=== PATIENT | male | born 1990 | race Caucasian/White ===

== ENCOUNTER 2017-06-12 10:43 | Inpatient (IN) | payer OTHER ==
[2017-06-12 10:58] VITALS: BMI 31.1
--- NOTE | 2017-06-12 11:21 | HP ---
COWS - Scale Resting Pulse: 1= ID [id number] Sweatin=Flushed/Facial Moisture Restless Observation: 3= Extraneous Movement Pupil Size: 2= Moderately Dilated Bone or Joint Aches: 2= Severe Diffuse Aches Runny Nose/ Eye Tearin= Runny Nose/Eyes GI Upset > 30mins: 3= Vomiting/Diarrhea Tremor Observation: 2= Slight Tremor Visible Yawning Observation: 2= >3x During Session Anxiety or Irritability: 2=Irritable/Anxious Goose Flesh Skin: 0=Smooth Skin COWS Score: 21 Admission ROS BHS - HPI Chief Complaint: i need help to stop using oxycodone and xanax Allergies/Adverse Reactions: Allergies Allergy/AdvReac Type Severity Reaction Status Date / Time No Known Allergies Allergy Verified 06/12/17 11:05 History of Present Illness: this 27 years old male with oxycodone and xanax dependence,seeking detox,last treatment [facility] from 12/14/15 to 12/18/15 ocd anxiety nicotine dependence no significant period of sobriety Exam Limitations: No Limitations - Ebola screening Have you traveled outside of the country in the last 21 days: No Have you had contact with anyone from an Ebola affected area: No Have you been sick,other than usual withdrawal symptoms: No Do you have a fever: No - Review of Systems Constitutional: Chills, Loss of Appetite, Malaise, Night Sweats, Changes in sleep EENT: reports: Tearing, Nose Congestion Respiratory: reports: No Symptoms reported Cardiac: reports: No Symptoms Reported GI: reports: Diarrhea, Nausea, Vomiting, Abdominal cramping : reports: No Symptoms Reported Musculoskeletal: reports: Back Pain, Joint Pain, Muscle Pain, Joint Stiffness Integumentary: reports: Dryness Endocrine: reports: No Symptoms Reported Hematology: reports: No Symptoms Reported Psychiatric: reports: Anxious (ocd insomnia) Patient History - Patient Medical History Hx Anemia: No Hx Asthma: No Hx Chronic Obstructive Pulmonary Disease (COPD): No Hx Cancer: No Hx Cardiac Disorders: No Hx Congestive Heart Failure: No Hx Hypertension: No Hx Hypercholesterolemia: No Hx Pacemaker: No HX Cerebrovascular Accident: No Hx Seizures: No Hx Dementia: No Hx Diabetes: No Hx Gastrointestinal Disorders: No Hx Liver Disease: No Hx Genitourinary Disorders: No Hx Sexually Transmitted Disorders: No Hx Renal Disease (ESRD): No Hx Thyroid Disease: No Hx Human Immunodeficiency Virus (HIV): No (06/25 NEGATIVE) Hx Hepatitis C: No Hx Depression: No Hx Suicide Attempt: No Hx Bipolar Disorder: No Hx Schizophrenia: No Other Medical History: ocd,insomnia,no suicidal,no homicidal - Patient Surgical History Past Surgical History: Yes Hx Orthopedic Surgery: Yes (fracture of right ankle) Other Surgical History: repair of right ankle 2013 Anesthesia Reaction: No - PPD History Previous Implant?: Yes Documented Results: Negative w/o proof Implanted On Prior [facility] Admission?: No Date: 12/16/15 Results: 0 MM PPD to be Administered?: Yes - Smoking Cessation Smoking history: Current every day smoker Have you smoked in the past 12 months: Yes Aproximately how many cigarettes per day: 20 Cigars Per Day: 0 Hx Chewing Tobacco Use: No Initiated information on smoking cessation: Yes 'Breaking Loose' booklet given: 06/12/17 - Substance & Tx. History Hx Alcohol Use: No Hx Substance Use: Yes Substance Use Type: Opiates, Tranquilizers Hx Substance Use Treatment: Yes ([facility] 12/14/15 to 12/18/15) - Substances Abused Alprazolam (Xanax) Route: Oral Frequency: Daily Amount used: 6MG Age of first use: 16 Date of Last Use: 06/11/17 OXYCODONE Route: Oral Frequency: Daily Amount used: 16 30MG PILLS Age of first use: 19 Date of Last Use: 06/11/17 Family Disease History - Family Disease History Family History: Denies Admission Physical Exam S - Vital Signs Vital Signs: Vital Signs - 24 hr 06/12/17 10:54 Temperature 97.4 F L Pulse Rate 90 Respiratory 18 Rate Blood Pressure 130/80 - Physical General Appearance: Yes: Moderate Distress, Tremorous, Irritable, Sweating, Anxious HEENTM: Yes: Normal ENT Inspection, NIC, Pharynx Normal Respiratory: Yes: Within Normal Limits, Lungs Clear, Normal Breath Sounds, No Respiratory Distress Neck: Yes: Within Normal Limits, Supple, Trachea in good position Breast: Yes: Within Normal Limits Cardiology: Yes: Within Normal Limits, Regular Rhythm, Regular Rate, S1, S2 Abdominal: Yes: Within Normal Limits, Non Tender, Flat, Soft Genitourinary: Yes: Within Normal Limits Back: Yes: Within Normal Limits, Normal Inspection, Muscle Spasm Musculoskeletal: Yes: Back pain, Joint Stiffness, Muscle Pain Extremities: Yes: Tremors, Other (s/p surgery of right akle fracture) Neurological: Yes: caul dresser II-XII NML intact, Fully Oriented, Alert, Motor Strength 5/5 Integumentary: Yes: Dry Lymphatic: Yes: Within Normal Limits - Diagnostic (1) Benzodiazepine dependence Current Visit: No Status: Acute (2) Insomnia Current Visit: No Status: Acute Qualifiers: Insomnia type: drug-induced Qualified Code(s): F19.982 - Other psychoactive substance use, unspecified with psychoactive substance-induced sleep disorder (3) Low back pain Current Visit: No Status: Acute (4) Nicotine dependence Current Visit: No Status: Acute Qualifiers: Nicotine product type: cigarettes Substance use status: uncomplicated Qualified Code(s): F17.210 - Nicotine dependence, cigarettes, uncomplicated (5) OCD (obsessive compulsive disorder) Current Visit: No Status: Acute (6) Opioid dependence with withdrawal Current Visit: No Status: Acute Cleared for Admission [facility] - Detox or Rehab [facility] Level of Care: Medically Managed Detox Regimen/Protocol: Methadone [facility] Breath Alcohol Content Breath Alcohol Content: 0 Urine Drug Screen - Results Drug Screen Negative: No Urine Drug Screen Results: MTD-Methadone, OXY-Oxycodone
[2017-06-12] MEDS ORDERED: MAGNESIUM HYDROX 2400MG/30ML ORAL SUSPENSION 30 ML CUP PO PRN (11:30)
[2017-06-12] MEDS ORDERED: guaiFENesin/D-METHORPHAN HB 10 ML UNIT-DOSE CUPS PO PRN (11:30)
[2017-06-12] MEDS ORDERED: IBUPROFEN 400 MG TABLET (FP) PO PRN (11:30)
[2017-06-12] MEDS ORDERED: MAG HYDROX/AL HYDROX/SIMETH 30 ML UNIT-DOSE CUP PO PRN (11:30)
[2017-06-12] MEDS ORDERED: ACETAMINOPHEN 325 MG TABLET (FP) PO PRN (11:30)
[2017-06-12] MEDS ORDERED: MAGNESIUM CITRATE 300 ML BOTTLE PO PRN (11:30)
[2017-06-12] MEDS ORDERED: MENTHOL/PHENOL 1 EACH UD MM PRN (11:30)
[2017-06-12] MEDS ORDERED: LOPERAMIDE HCL 2 MG CAPSULE PO PRN (11:30)
[2017-06-12] MEDS ORDERED: P-EPHED 60MG/TRIPROLIDI 2.5MG TABLET PO PRN (11:30)
[2017-06-12] MEDS ORDERED: METHADONE HCL 10 MG TABLET (FOR DETOX USE ONLY) PO ONE ×2 (11:42→23:00)
[2017-06-12] MEDS: diazePAM 5 MG TABLET PO PRN ×3 (12:28→22:02)
--- NOTE | 2017-06-12 13:27 | EKG ---
Test Reason : Blood Pressure : / mmHG Vent. Rate : 083 BPM Atrial Rate : 083 BPM P-R Int : 150 ms QRS Dur : 094 ms QT Int : 378 ms P-R-T Axes : 069 036 050 degrees QTc Int : 444 ms NORMAL SINUS RHYTHM NORMAL ECG NO PREVIOUS ECGS AVAILABLE Confirmed by CLEMENCIA ROBBINS MD ([id number]) on 06/12/2017 1:27:05 PM Referred By: Confirmed By:CLEMENCIA ROBBINS MD
--- NOTE | 2017-06-12 16:30 | CONSULT ---
[facility] Psychiatric Consult - Data Date of interview: 06/12/17 Admission source: [facility] Identifying data: Readmission to [facility] for this 27 y/o male seeking detox treatment on for xanax and opiate dependence.Patient is single without children,domiciled and currently employed. Substance Abuse History: Confirmed by patient in this interview.See current [facility] report for details : Smoking history: Current every day smoker. Have you smoked in the past 12 months: Yes. Aproximately how many cigarettes per day: 20. Cigars Per Day: 0. Hx Chewing Tobacco Use: No. Initiated information on smoking cessation: Yes. 'Breaking Loose' booklet given: 06/12/17. - Substance & Tx. History. Hx Alcohol Use: No. Hx Substance Use: Yes. Substance Use Type : Opiates, Tranquilizers. Hx Substance Use Treatment: Yes ([facility] 12/14/15 to 03/25). - Substances Abused. Alprazolam (Xanax). Route: Oral. Frequency: Daily. Amount used: 6MG. Age of first use: 16. Date of Last Use: 06/11/17. * * OXYCODONE. Route: Oral. Frequency: Daily. Amount used: 16 30MG PILLS. Age of first use: 19. Date of Last Use: 06/11/17 Medical History: Patient endorses good general health.Noted history of orthosurgery for fracture of right ankle (2012). Psychiatric History: Patient denies history of psychiatric hospitalizations.No affiliation with psychiatric OPD care providers.Mr Benítez denies history of suicide attempts. Physical/Sexual Abuse/Trauma History: No reported history of abuse. Additional Comment: Urine Drug Screen Results: MTD-Methadone, OXY- Oxycodone.Noted. Mental Status Exam - Mental Status Exam Alert and Oriented to: Time, Place, Person Cognitive Function: Good Patient Appearance: Well Groomed Mood: Hopeful, Euthymic Affect: Appropriate, Normal Range Patient Behavior: Appropriate, Cooperative Speech Pattern: Clear, Appropriate Voice Loudness: Normal Thought Process: Intact, Goal Oriented Thought Disorder: Not Present Hallucinations: Denies Suicidal Ideation: Denies Homicidal Ideation: Denies Insight/Judgement: Poor Sleep: Poorly, Difficulty falling asleep Muscle strength/Tone: Normal Gait/Station: Normal Psychiatric Findings - Problem List ([place] 1, 2,3) (1) Opioid dependence with withdrawal Current Visit: Yes Status: Acute (2) Nicotine dependence Current Visit: Yes Status: Acute Qualifiers: Nicotine product type: cigarettes Substance use status: uncomplicated Qualified Code(s): F17.210 - Nicotine dependence, cigarettes, uncomplicated (3) Drug-induced mood disorder Current Visit: Yes Status: Suspected (4) Insomnia Current Visit: Yes Status: Acute Qualifiers: Insomnia type: drug-induced Qualified Code(s): F19.982 - Other psychoactive substance use, unspecified with psychoactive substance-induced sleep disorder - Initial Treatment Plan Initial Treatment Plan: Psychoeducation.Sleep hygiene discussed.Detoxification in progress.Ambien 10 mg po hs prn.Side effects/benefits discussed with patient.Mr Benítez agrees with this careplan.Observation.
[2017-06-12] MEDS: NICOTINE POLACRILEX 2 MG GUM BUC PRN (17:34)
[2017-06-12 18:38] LABS: HEMATOCRIT 42.3 % (35.4-49); HEMOGLOBIN 14.3 GM/dL (11.7-16.9); MCH 28.9 pg (25.7-33.7); MCHC 33.8 g/dl (32.0-35.9); MEAN CELL VOLUME 85.5 fl (80-96); MEAN PLT VOLUME 9.3 fl (7.5-11.1); PLATELET COUNT 236 K/MM3 (134-434); RBC 4.95 M/mm3 (4.00-5.60); WHITE BLOOD COUNT 7.2 K/mm3 (4.0-10.0)
[2017-06-12 18:44] LABS: URINE APPEARANCE CLEAR; URINE BILIRUBIN NEGATIVE (NEGATIVE); URINE BLOOD NEGATIVE (NEGATIVE); URINE COLOR LTYELLOW; URINE GLUCOSE (UA) NEGATIVE (NEGATIVE); URINE KETONE NEGATIVE (NEGATIVE); URINE LEUK ESTERASE NEGATIVE (NEGATIVE); URINE NITRITE NEGATIVE (NEGATIVE); URINE PROTEIN NEGATIVE (NEGATIVE); URINE UROBILINOGEN NEGATIVE mg/dL (0.2-1.0)
[2017-06-12 18:51] LABS: ALBUMIN 4.8 g/dl (3.4-5.0); ALK PHOS 83 U/L (45-117); ANION GAP 9 (8-16); BILIRUBIN,TOTAL 0.6 mg/dL (0.2-1.0); BLOOD UREA NITROGEN 10 mg/dL (7-18); CALCIUM 9.7 mg/dL (8.5-10.1); CHLORIDE 103 mmol/L (98-107); CO2 27 mmol/L (21-32); CREATININE 1.1 mg/dL (0.7-1.3); GLUCOSE,RANDOM 108 mg/dL (74-106); POTASSIUM 3.9 mmol/L (3.5-5.1); SGOT/AST 16 U/L (15-37); SGPT/ALT 22 U/L (12-78); SODIUM 139 mmol/L (136-145); TOT PROT 7.9 g/dl (6.4-8.2)
[2017-06-12] MEDS: ZOLPIDEM TARTRATE 10 MG TABLET (PARK CARE ONLY) PO PRN (22:02)
[2017-06-12] MEDS: THIAMINE HCL 100 MG TABLET (FP) PO SCH (22:02)
[2017-06-13] MEDS: diazePAM 5 MG TABLET PO PRN ×3 (05:45→21:35)
[2017-06-13] MEDS ORDERED: METHADONE HCL 10 MG TABLET (FOR DETOX USE ONLY) PO ONE (10:00)
[2017-06-13] MEDS: PRENATAL VITAMINS W/ FOLIC ACID TABLET (FP) PO SCH (10:16)
--- NOTE | 2017-06-13 10:18 | PN ---
S COWS - Scale Resting Pulse: 0= [place] 80 or Below Sweatin= Chills/Flushing Restless Observation: 3= Extraneous Movement Pupil Size: 0= Normal to Room Light Bone or Joint Aches: 4=Acute Joint/Muscle Pain Runny Nose/ Eye Tearin= None GI Upset > 30mins: 1= Stomach Cramp Tremor Observation of Outstretched Hands: 1= Tremor [place], Not Seen Yawning Observation: 2= >3x During Session Anxiety or Irritability: 2=Irritable/Anxious Goose Flesh Skin: 0=Smooth Skin COWS Score: 14 S Progress Note (SOAP) Subjective: ANXIETY,SWEATS,CHILLS,CONSTIPATION X 2 DAYS. Objective: 06/13/17 10:17 Vital Signs Temperature 97.0 F L 06/13/17 08:50 Pulse Rate 70 06/13/17 08:50 Respiratory Rate 18 06/13/17 08:50 Blood Pressure 116/76 06/13/17 08:50 O2 Sat by Pulse Oximetry (%) Laboratory Last Values WBC 7.2 K/mm3 (4.0-10.0) 06/12/17 12:00 RBC 4.95 M/mm3 (4.00-5.60) 06/12/17 12:00 Hgb 14.3 GM/dL (11.7-16.9) 06/12/17 12:00 Hct 42.3 % (35.4-49) 06/12/17 12:00 MCV 85.5 fl (80-96) 06/12/17 12:00 MCH 28.9 pg (25.7-33.7) 06/12/17 12:00 MCHC 33.8 g/dl (32.0-35.9) 06/12/17 12:00 RDW 14.0 % (11.9-15.9) 06/12/17 12:00 Plt Count 236 K/MM3 (134-434) 06/12/17 12:00 MPV 9.3 fl (7.5-11.1) 06/12/17 12:00 Sodium 139 mmol/L (136-145) 06/12/17 12:00 Potassium 3.9 mmol/L (3.5-5.1) 06/12/17 12:00 Chloride 103 mmol/L (98-107) 06/12/17 12:00 Carbon Dioxide 27 mmol/L (21-32) 06/12/17 12:00 Anion Gap 9 (8-16) 06/12/17 12:00 BUN 10 mg/dL (7-18) D 06/12/17 12:00 Creatinine 1.1 mg/dL (0.7-1.3) 06/12/17 12:00 Creat Clearance w eGFR > 60 (>60) 06/12/17 12:00 Random Glucose 108 mg/dL (74-106) H 06/12/17 12:00 Calcium 9.7 mg/dL (8.5-10.1) 06/12/17 12:00 Total Bilirubin 0.6 mg/dL (0.2-1.0) D 06/12/17 12:00 AST 16 U/L (15-37) 06/12/17 12:00 ALT 22 U/L (12-78) 06/12/17 12:00 Alkaline Phosphatase 83 U/L (45-117) 06/12/17 12:00 Total Protein 7.9 g/dl (6.4-8.2) 06/12/17 12:00 Albumin 4.8 g/dl (3.4-5.0) 06/12/17 12:00 Urine Color Ltyellow 06/12/17 15:00 Urine Appearance Clear 06/12/17 15:00 Urine pH 7.0 (5.0-8.0) D 06/12/17 15:00 Ur Specific [place] 1.011 (1.001-1.035) 06/12/17 15:00 Urine Protein Negative (NEGATIVE) 06/12/17 15:00 Urine Glucose (UA) Negative (NEGATIVE) 06/12/17 15:00 Urine Ketones Negative (NEGATIVE) 06/12/17 15:00 Urine Blood Negative (NEGATIVE) 06/12/17 15:00 Urine Nitrite Negative (NEGATIVE) 06/12/17 15:00 Urine Bilirubin Negative (NEGATIVE) 06/12/17 15:00 Urine Urobilinogen Negative mg/dL (0.2-1.0) 06/12/17 15:00 Ur Leukocyte Esterase Negative (NEGATIVE) 06/12/17 15:00 Assessment: 06/13/17 10:17 WITHDRAWAL SX Plan: CONTINUE DETOX MOM PRN
[2017-06-13] MEDS: NICOTINE POLACRILEX 2 MG GUM BUC PRN ×3 (10:47→17:04)
--- NOTE | 2017-06-13 17:55 | PN ---
BHS Progress Note Note: received nurse call that the patient wants ensure for weight gain bmi 31.1 encourage health teaching on risks of over weight
[2017-06-13] MEDS: THIAMINE HCL 100 MG TABLET (FP) PO SCH (22:06)
[2017-06-13] MEDS: ZOLPIDEM TARTRATE 10 MG TABLET (PARK CARE ONLY) PO PRN (22:06)
[2017-06-14] MEDS: diazePAM 5 MG TABLET PO PRN ×4 (06:38→22:07)
[2017-06-14] MEDS: PRENATAL VITAMINS W/ FOLIC ACID TABLET (FP) PO SCH (09:20)
[2017-06-14] MEDS ORDERED: METHADONE HCL 5 MG TABLET (FOR DETOX USE ONLY) PO ONE (10:00)
--- NOTE | 2017-06-14 11:40 | PN ---
BHS COWS - Scale Resting Pulse: 0= [place] 80 or Below Sweatin= Streaming Sweat Restless Observation: 3= Extraneous Movement Pupil Size: 2= Moderately Dilated Bone or Joint Aches: 2= Severe Diffuse Aches Runny Nose/ Eye Tearin= None GI Upset > 30mins: 0= None Tremor Observation of Outstretched Hands: 1= Tremor [place], Not Seen Yawning Observation: 1= 1-2x During Session Anxiety or Irritability: 2=Irritable/Anxious Goose Flesh Skin: 0=Smooth Skin COWS Score: 15 BHS Progress Note (SOAP) Subjective: ANXIETY,IRRITABILITY,SWEATS,LOSS OF APPETITE,CONSTIPATION X 3 DAYS. MOM NOT EFFECTIVE. Objective: 06/14/17 11:43 Vital Signs Temperature 97.8 F 06/14/17 09:23 Pulse Rate 78 06/14/17 09:23 Respiratory Rate 18 06/14/17 09:23 Blood Pressure 95/63 06/14/17 09:23 O2 Sat by Pulse Oximetry (%) Laboratory Last Values WBC 7.2 K/mm3 (4.0-10.0) 06/12/17 12:00 RBC 4.95 M/mm3 (4.00-5.60) 06/12/17 12:00 Hgb 14.3 GM/dL (11.7-16.9) 06/12/17 12:00 Hct 42.3 % (35.4-49) 06/12/17 12:00 MCV 85.5 fl (80-96) 06/12/17 12:00 MCH 28.9 pg (25.7-33.7) 06/12/17 12:00 MCHC 33.8 g/dl (32.0-35.9) 06/12/17 12:00 RDW 14.0 % (11.9-15.9) 06/12/17 12:00 Plt Count 236 K/MM3 (134-434) 06/12/17 12:00 MPV 9.3 fl (7.5-11.1) 06/12/17 12:00 Sodium 139 mmol/L (136-145) 06/12/17 12:00 Potassium 3.9 mmol/L (3.5-5.1) 06/12/17 12:00 Chloride 103 mmol/L (98-107) 06/12/17 12:00 Carbon Dioxide 27 mmol/L (21-32) 06/12/17 12:00 Anion Gap 9 (8-16) 06/12/17 12:00 BUN 10 mg/dL (7-18) D 06/12/17 12:00 Creatinine 1.1 mg/dL (0.7-1.3) 06/12/17 12:00 Creat Clearance w eGFR > 60 (>60) 06/12/17 12:00 Random Glucose 108 mg/dL (74-106) H 06/12/17 12:00 Calcium 9.7 mg/dL (8.5-10.1) 06/12/17 12:00 Total Bilirubin 0.6 mg/dL (0.2-1.0) D 06/12/17 12:00 AST 16 U/L (15-37) 06/12/17 12:00 ALT 22 U/L (12-78) 06/12/17 12:00 Alkaline Phosphatase 83 U/L (45-117) 06/12/17 12:00 Total Protein 7.9 g/dl (6.4-8.2) 06/12/17 12:00 Albumin 4.8 g/dl (3.4-5.0) 06/12/17 12:00 Urine Color Ltyellow 06/12/17 15:00 Urine Appearance Clear 06/12/17 15:00 Urine pH 7.0 (5.0-8.0) D 06/12/17 15:00 Ur Specific [place] 1.011 (1.001-1.035) 06/12/17 15:00 Urine Protein Negative (NEGATIVE) 06/12/17 15:00 Urine Glucose (UA) Negative (NEGATIVE) 06/12/17 15:00 Urine Ketones Negative (NEGATIVE) 06/12/17 15:00 Urine Blood Negative (NEGATIVE) 06/12/17 15:00 Urine Nitrite Negative (NEGATIVE) 06/12/17 15:00 Urine Bilirubin Negative (NEGATIVE) 06/12/17 15:00 Urine Urobilinogen Negative mg/dL (0.2-1.0) 06/12/17 15:00 Ur Leukocyte Esterase Negative (NEGATIVE) 06/12/17 15:00 RPR Titer Nonreactive (NONREACTIVE) 06/12/17 12:00 HIV 1&2 Antibody Screen Negative 06/12/17 12:00 HIV P24 Antigen Negative 06/12/17 12:00 Assessment: 06/14/17 11:43 WITHDRAWAL SX Plan: CONTINUE DETOX. CITRATE OF MG TODAY
[2017-06-14] MEDS: NICOTINE POLACRILEX 2 MG GUM BUC PRN ×5 (12:19→23:12)
[2017-06-14] MEDS: THIAMINE HCL 100 MG TABLET (FP) PO SCH (22:07)
[2017-06-14] MEDS: ZOLPIDEM TARTRATE 10 MG TABLET (PARK CARE ONLY) PO PRN (22:08)
[2017-06-15] MEDS: hydrOXYzine PAMOATE 50 MG CAPSULE (FP) PO PRN ×3 (02:35→22:21)
[2017-06-15] MEDS: diazePAM 5 MG TABLET PO PRN (06:58)
[2017-06-15] MEDS: PRENATAL VITAMINS W/ FOLIC ACID TABLET (FP) PO SCH (09:26)
[2017-06-15] MEDS ORDERED: METHADONE HCL 5 MG TABLET (FOR DETOX USE ONLY) PO ONE (10:00)
[2017-06-15] MEDS ORDERED: METHADONE HCL 10 MG TABLET (FOR DETOX USE ONLY) PO ONE (10:00)
[2017-06-15] MEDS: NICOTINE POLACRILEX 2 MG GUM BUC PRN ×4 (10:08→23:55)
--- NOTE | 2017-06-15 13:38 | PN ---
BHS Progress Note (SOAP) Subjective: Constipation, interrupted sleep Objective: 06/15/17 13:36 Vital Signs 06/15/17 06/15/17 06:19 09:46 Temperature 96.8 F L 96.4 F L Pulse Rate 62 74 Respiratory 18 20 Rate Blood Pressure 107/60 110/70 Laboratory Last Values WBC 7.2 K/mm3 (4.0-10.0) 06/12/17 12:00 RBC 4.95 M/mm3 (4.00-5.60) 06/12/17 12:00 Hgb 14.3 GM/dL (11.7-16.9) 06/12/17 12:00 Hct 42.3 % (35.4-49) 06/12/17 12:00 MCV 85.5 fl (80-96) 06/12/17 12:00 MCH 28.9 pg (25.7-33.7) 06/12/17 12:00 MCHC 33.8 g/dl (32.0-35.9) 06/12/17 12:00 RDW 14.0 % (11.9-15.9) 06/12/17 12:00 Plt Count 236 K/MM3 (134-434) 06/12/17 12:00 MPV 9.3 fl (7.5-11.1) 06/12/17 12:00 Sodium 139 mmol/L (136-145) 06/12/17 12:00 Potassium 3.9 mmol/L (3.5-5.1) 06/12/17 12:00 Chloride 103 mmol/L (98-107) 06/12/17 12:00 Carbon Dioxide 27 mmol/L (21-32) 06/12/17 12:00 Anion Gap 9 (8-16) 06/12/17 12:00 BUN 10 mg/dL (7-18) D 06/12/17 12:00 Creatinine 1.1 mg/dL (0.7-1.3) 06/12/17 12:00 Creat Clearance w eGFR > 60 (>60) 06/12/17 12:00 Random Glucose 108 mg/dL (74-106) H 06/12/17 12:00 Calcium 9.7 mg/dL (8.5-10.1) 06/12/17 12:00 Total Bilirubin 0.6 mg/dL (0.2-1.0) D 06/12/17 12:00 AST 16 U/L (15-37) 06/12/17 12:00 ALT 22 U/L (12-78) 06/12/17 12:00 Alkaline Phosphatase 83 U/L (45-117) 06/12/17 12:00 Total Protein 7.9 g/dl (6.4-8.2) 06/12/17 12:00 Albumin 4.8 g/dl (3.4-5.0) 06/12/17 12:00 Urine Color Ltyellow 06/12/17 15:00 Urine Appearance Clear 06/12/17 15:00 Urine pH 7.0 (5.0-8.0) D 06/12/17 15:00 Ur Specific [place] 1.011 (1.001-1.035) 06/12/17 15:00 Urine Protein Negative (NEGATIVE) 06/12/17 15:00 Urine Glucose (UA) Negative (NEGATIVE) 06/12/17 15:00 Urine Ketones Negative (NEGATIVE) 06/12/17 15:00 Urine Blood Negative (NEGATIVE) 06/12/17 15:00 Urine Nitrite Negative (NEGATIVE) 06/12/17 15:00 Urine Bilirubin Negative (NEGATIVE) 06/12/17 15:00 Urine Urobilinogen Negative mg/dL (0.2-1.0) 06/12/17 15:00 Ur Leukocyte Esterase Negative (NEGATIVE) 06/12/17 15:00 RPR Titer Nonreactive (NONREACTIVE) 06/12/17 12:00 HIV 1&2 Antibody Screen Negative 06/12/17 12:00 HIV P24 Antigen Negative 06/12/17 12:00 Labs noted Assessment: 06/15/17 13:36 Withdrawal sx Plan: Continue detox
[2017-06-15] MEDS: THIAMINE HCL 100 MG TABLET (FP) PO SCH (22:18)
[2017-06-15] MEDS ORDERED: diphenhydrAMINE HCL 25 MG CAPSULE (FP) PO ONE (23:44)
[2017-06-16] MEDS: hydrOXYzine PAMOATE 50 MG CAPSULE (FP) PO PRN (02:08)
[2017-06-16] MEDS: NICOTINE POLACRILEX 2 MG GUM BUC PRN ×2 (02:29→04:37)
[2017-06-16] MEDS ORDERED: METHADONE HCL 5 MG TABLET (FOR DETOX USE ONLY) PO ONE (06:00)
[2017-06-16 06:19] VITALS: BP 108/69; PULSE 75; TEMP 96.3
[2017-06-16] MEDS ORDERED: METHADONE HCL 10 MG TABLET (FOR DETOX USE ONLY) PO ONE (10:00)
--- NOTE | 2017-06-16 12:32 | DS ---
[facility] Detox Discharge Summary Admission Date: 06/12/17 Discharge Date: 06/16/17 - History Present History: Opioid Dependence, Sedative Dependence Pertinent Past History: OCD by hx. - Physical Exam Results Vital Signs: Vital Signs Temperature 96.3 F L 06/16/17 06:19 Pulse Rate 75 06/16/17 06:19 Respiratory Rate 18 06/16/17 06:19 Blood Pressure 108/69 06/16/17 06:19 O2 Sat by Pulse Oximetry (%) Pertinent Admission Physical Exam Findings: Withdrawal sx. Laboratory Last Values WBC 7.2 K/mm3 (4.0-10.0) 06/12/17 12:00 RBC 4.95 M/mm3 (4.00-5.60) 06/12/17 12:00 Hgb 14.3 GM/dL (11.7-16.9) 06/12/17 12:00 Hct 42.3 % (35.4-49) 06/12/17 12:00 MCV 85.5 fl (80-96) 06/12/17 12:00 MCH 28.9 pg (25.7-33.7) 06/12/17 12:00 MCHC 33.8 g/dl (32.0-35.9) 06/12/17 12:00 RDW 14.0 % (11.9-15.9) 06/12/17 12:00 Plt Count 236 K/MM3 (134-434) 06/12/17 12:00 MPV 9.3 fl (7.5-11.1) 06/12/17 12:00 Sodium 139 mmol/L (136-145) 06/12/17 12:00 Potassium 3.9 mmol/L (3.5-5.1) 06/12/17 12:00 Chloride 103 mmol/L (98-107) 06/12/17 12:00 Carbon Dioxide 27 mmol/L (21-32) 06/12/17 12:00 Anion Gap 9 (8-16) 06/12/17 12:00 BUN 10 mg/dL (7-18) D 06/12/17 12:00 Creatinine 1.1 mg/dL (0.7-1.3) 06/12/17 12:00 Creat Clearance w eGFR > 60 (>60) 06/12/17 12:00 Random Glucose 108 mg/dL (74-106) H 06/12/17 12:00 Calcium 9.7 mg/dL (8.5-10.1) 06/12/17 12:00 Total Bilirubin 0.6 mg/dL (0.2-1.0) D 06/12/17 12:00 AST 16 U/L (15-37) 06/12/17 12:00 ALT 22 U/L (12-78) 06/12/17 12:00 Alkaline Phosphatase 83 U/L (45-117) 06/12/17 12:00 Total Protein 7.9 g/dl (6.4-8.2) 06/12/17 12:00 Albumin 4.8 g/dl (3.4-5.0) 06/12/17 12:00 Urine Color Ltyellow 06/12/17 15:00 Urine Appearance Clear 06/12/17 15:00 Urine pH 7.0 (5.0-8.0) D 06/12/17 15:00 Ur Specific [place] 1.011 (1.001-1.035) 06/12/17 15:00 Urine Protein Negative (NEGATIVE) 06/12/17 15:00 Urine Glucose (UA) Negative (NEGATIVE) 06/12/17 15:00 Urine Ketones Negative (NEGATIVE) 06/12/17 15:00 Urine Blood Negative (NEGATIVE) 06/12/17 15:00 Urine Nitrite Negative (NEGATIVE) 06/12/17 15:00 Urine Bilirubin Negative (NEGATIVE) 06/12/17 15:00 Urine Urobilinogen Negative mg/dL (0.2-1.0) 06/12/17 15:00 Ur Leukocyte Esterase Negative (NEGATIVE) 06/12/17 15:00 RPR Titer Nonreactive (NONREACTIVE) 06/12/17 12:00 HIV 1&2 Antibody Screen Negative 06/12/17 12:00 HIV P24 Antigen Negative 06/12/17 12:00 labs noted - Treatment Hospital Course: Detox Protocol Followed, Detoxed Safely, Responded well, Discharged Condition Good Patient has Accepted a Rehab Referral to: refused in-pt. rehab, advised self helf groups - Medication Discharge Medications: Ambulatory Orders NK [No Known Home Medication] 11/17/14 - Diagnosis (1) Nicotine dependence Status: Acute Qualifiers: Nicotine product type: cigarettes Substance use status: uncomplicated Qualified Code(s): F17.210 - Nicotine dependence, cigarettes, uncomplicated (2) Opioid dependence with withdrawal Status: Acute (3) Sedative, hypnotic or anxiolytic dependence with withdrawal, uncomplicated Status: Acute (4) Drug-induced mood disorder Status: Suspected - AMA Did Patient Leave Against Medical Advice: No
[2017-06-17] MEDS ORDERED: METHADONE HCL 5 MG TABLET (FOR DETOX USE ONLY) PO ONE (06:00)
== END 2017-06-16 09:15 | disposition home or self-care (01) | DRG 773 ==
LOC: YASAS 10:43 → Y3N 11:40
PROVIDERS: ADMIT Internal Medicine; ATTEND Internal Medicine
PROC: HZ2ZZZZ Detoxification Services for Substance Abuse Treatment (ICD-10-PCS; principal; 2017-06-12)
DX: F11.23 Opioid dependence with withdrawal (principal); F13.230 Sedative, hypnotic or anxiolytic dependence with withdrawal, uncomplicated; F17.210 Nicotine dependence, cigarettes, uncomplicated; F19.24 Other psychoactive substance dependence with psychoactive substance-induced mood disorder; F42.8 Other obsessive-compulsive disorder; K59.01 Slow transit constipation
CPT/HCPCS: 36415; 80053; 81003; 85027; 86593; 87389; 93005; 93010